=== PATIENT | female | born 1980 | race Caucasian/White ===

== ENCOUNTER 2019-08-16 06:43 | Observation (INO) | payer OTHER ==
[~2019-08-16] VITALS: Ht 157.5 cm; Wt 76.3 kg
[2019-08-16 07:35] VITALS: BP 139/86
[2019-08-16] MEDS ORDERED: CHLORHEXIDINE 15 ML UDC ONE (07:51)
[2019-08-16 08:02] LABS: HCG UR SG 1.015 (1.003-1.030); MICROSCOPIC AUTO
[2019-08-16] MEDS ORDERED: CHLORHEXIDINE 15 ML UDC MM STA (08:27)
[2019-08-16 08:31] VITALS: BP 139/86
[2019-08-16] MEDS ORDERED: LISI-170 PO (09:09)
[2019-08-16] MEDS ORDERED: FENTANYL PF 100 MCG/2ML ONE ×4 (09:22→13:42)
[2019-08-16] MEDS ORDERED: MIDAZOLAM 1 MG/ML, 5ML ONE (09:22)
[2019-08-16] MEDS ORDERED: FLUMAZENIL 0.1 MG/1 ML, 5ML ONE (09:23)
[2019-08-16] MEDS ORDERED: NALOXONE 1 MG/ML, 2ML ONE (09:23)
[2019-08-16] MEDS ORDERED: LIDOCAINE 1%, 10ML ONE (09:31)
[2019-08-16] MEDS ORDERED: CEFAZOLIN PMX 1GM/50ML 50 ML ONE (09:41)
[2019-08-16] MEDS ORDERED: VISIPAQUE 270 MG/ML, 50ML BOTTLE ONE (10:24)
[2019-08-16] MEDS ORDERED: LIDOCAINE-MPF 2% ,5ML ONE (11:19)
[2019-08-16] MEDS ORDERED: PROPOFOL 10 MG/ML, 20ML ONE ×3 (11:19→12:44)
[2019-08-16] MEDS ORDERED: ROCURONIUM 10MG/ML,5ML ONE (11:19)
[2019-08-16] MEDS ORDERED: GENTAMICIN 80 MG/2 ML ONE (11:19)
[2019-08-16] MEDS ORDERED: MIDAZOLAM 1 MG/ML, 2ML ONE (11:25)
[2019-08-16] MEDS ORDERED: SUGAMMADEX 200 MG/2 ML IVPush ONE (12:42)
[2019-08-16] MEDS: FENTANYL PF 100 MCG/2ML IV PRN ×4 (13:15→13:53)
[2019-08-16] MEDS ORDERED: OMNIPAQUE 350 MG/ML, 50 ML BOTTLE ONE (13:15)
[2019-08-16] MEDS ORDERED: HYDROmorphone 1 MG/ML, 1ML INJ IVPush PRN (13:30)
[2019-08-16] MEDS ORDERED: morphine SULFATE 10 MG/ML, 1ML IVPush PRN (13:30)
[2019-08-16] MEDS ORDERED: HYDROcodone/APAP 7.5-325MG/15ML UDC PO PRN (13:30)
[2019-08-16] MEDS ORDERED: OXYcodone 5 MG/5 ML ORAL.SOL UDC PO PRN (13:30)
[2019-08-16] MEDS ORDERED: ACETAMINOPHEN 325 MG TABLET PO PRN (13:30)
[2019-08-16] MEDS ORDERED: HYDROcodone/APAP 7.5-325MG/15ML UDC ONE (13:42)
[2019-08-16] MEDS: HYDROmorphone 2 MG/ML, 1ML IV PRN ×2 (15:38→20:03)
[2019-08-16] MEDS: LACTATED RINGERS 1,000 ML IV SCH (17:26)
[2019-08-16] MEDS: OXYcodone/APAP 5/325MG TABLET PO PRN ×2 (17:31→21:21)
[2019-08-16] MEDS: ONDANSETRON 2MG/ML, 2ML IV PRN (18:45)
[2019-08-16 19:10] VITALS: BP 145/91
[2019-08-16 23:53] VITALS: BP 118/71
[2019-08-17] MEDS: OXYcodone/APAP 5/325MG TABLET PO PRN ×3 (01:55→07:47)
[2019-08-17 03:48] VITALS: BP 105/69
[2019-08-17] MEDS: LACTATED RINGERS 1,000 ML IV SCH ×2 (04:56→15:54)
[2019-08-17 07:18] VITALS: BP 115/73
[2019-08-17] MEDS: LISINOPRIL 10 MG TABLET PO SCH (07:47)
[2019-08-17] MEDS: ONDANSETRON 2MG/ML, 2ML IV PRN (10:46)
[2019-08-17] MEDS: HYDROmorphone 2 MG/ML, 1ML IV PRN (10:49)
[2019-08-17 14:15] VITALS: BP 97/53
[2019-08-17] MEDS: HYDROcodone/APAP 10/325 MG TABLET PO PRN ×2 (16:04→22:41)
[2019-08-17 20:09] VITALS: BP 101/66
[2019-08-18 01:40] VITALS: BP 103/62
[2019-08-18] MEDS: HYDROcodone/APAP 10/325 MG TABLET PO PRN (04:36)
[2019-08-18 05:41] LABS: BASOPHILS # (AUTO) 0.12 x10^3/uL (0-0.1); BASOPHILS % (AUTO) 1 % (0-1); EOSINOPHILS # (AUTO) 0.17 x10^3/uL (0-0.4); EOSINOPHILS % (AUTO) 2 % (1-7); LYMPHOCYTES # (AUTO) 2.76 x10^3/uL (1-3.4); LYMPHOCYTES % (AUTO) 24 % (22-44); MD NO; MEAN CORPUSCULAR HEMOGLOBIN 28.4 pg (27.0-34.8); MEAN CORPUSCULAR HGB CONC 33.6 g/dL (32.4-35.8); MEAN CORPUSCULAR VOLUME 84.6 fL (80-100); MEAN PLATELET VOLUME 10.3 fL (7.4-10.4); MONOCYTES # (AUTO) 1.07 x10^3/uL (0.2-0.8); MONOCYTES % (AUTO) 9 % (2-9); NEUTROPHILS # (AUTO) 7.61 x10^3/uL (1.8-6.8); NEUTROPHILS % (AUTO) 65 % (42-75); PLATELET COUNT 195 x10^3/uL (130-400); RED BLOOD COUNT 3.53 x10^6/uL (3.82-5.3); RED CELL DISTRIBUTION WIDTH 14.4 % (9.6-15.2)
[2019-08-18 05:55] LABS: ANION GAP 8 mmol/L (5-15); CALCIUM 7.8 mg/dL (8.5-10.1); CHLORIDE 108 mmol/L (98-107); CREATININE 1.22 mg/dL (0.55-1.02)
[2019-08-18 07:41] VITALS: BP 100/63
[2019-08-18] MEDS: LISINOPRIL 10 MG TABLET PO SCH (09:06)
[2019-08-18] MEDS: LACTATED RINGERS 1,000 ML IV SCH (11:37)
[2019-08-18] MEDS ORDERED: HYDROcodone/APAP 5/325 TABLET PO PRN (12:30)
[2019-08-18] MEDS ORDERED: HYDR-3240 PO (12:41)
[2019-08-18 12:44] VITALS: BP 120/80
== END 2019-08-18 13:15 | disposition home or self-care (01) ==
LOC: OUT 06:43 → ORIP 13:00 → 4NE 14:15 → DCLOUNGE 08-18 13:04
PROVIDERS: ADMIT Urology; ATTEND Urology
DX: Z03.818 Encounter for observation for suspected exposure to other biological agents ruled out (principal); N20.0 Calculus of kidney; R42 Dizziness and giddiness; Z87.442 Personal history of urinary calculi
CPT/HCPCS: 36415; 50081; 50433; 74420; 80048; 81001; 81025; 82360; 85025; 87086; 87635; 88300; 96361; 96374; 96375; 96376; C1729; C1751; C1769; C1894; C2617; C2625; C2627; G0378; J0690; J1170; J2250; J2405; J2704; J3010; J3490; J7120; Q9966; Q9967; J1580; J2310